=== PATIENT | female | born 1980 | race Caucasian/White ===

== ENCOUNTER 2017-12-08 06:44 | Inpatient (IN) | payer OTHER ==
[~2017-12-08] VITALS: Ht 160 cm; Wt 111.5 kg
[2017-12-12] MEDS ORDERED: CLR10 PO (08:05)
[2017-12-12] MEDS ORDERED: PRENTAB26 PO (08:05)
[2017-12-12] MEDS ORDERED: POTASSIUM 99 MG (08:05)
[2017-12-12 08:08] VITALS: Ht 160 cm; Wt 111.5 kg
[2017-12-12] MEDS ORDERED: LACTATED RINGER'S 1000ML 1,000 ML IV PRN (09:51)
[2017-12-12] MEDS ORDERED: DINOPROSTONE 10 MG INSERT PV ONE (10:00)
[2017-12-12] MEDS: LACTATED RINGER'S 1000ML 1,000 ML IV SCH ×4 (10:05→23:46)
[2017-12-12 10:23] LABS: HEMATOCRIT 39.5 % (37-47); HEMOGLOBIN 13.2 g/dL (12.0-16.0); MEAN CORPUSCULAR HEMOGLOBIN 27.4 pg (25-34); MEAN CORPUSCULAR HGB CONC 33.4 g/dl (32-36); MEAN PLATELET VOLUME 10.3 fL (7.4-10.4); PLATELET COUNT 191 K/uL (130-400); RED CELL DISTRIBUTION WIDTH CV 13.9 % (11.5-14.5); RED CELL DISTRIBUTION WIDTH SD 41.6 fL (36.4-46.3); WHITE BLOOD COUNT 11.91 K/uL (4.8-10.8)
[2017-12-12] MEDS ORDERED: BUTORPHANOL TARTRATE 1 MG/ML VIAL IV PRN (10:45)
[2017-12-12 10:50] LABS: ALBUMIN 2.6 gm/dl (3.4-5.0); CALCIUM 8.7 mg/dl (8.5-10.1); CREATININE 0.65 mg/dl (0.60-1.20); POTASSIUM 4.1 mmol/L (3.5-5.1); TOTAL PROTEIN 6.6 gm/dl (6.4-8.2)
[2017-12-12] MEDS ORDERED: BUPIVACAINE 0.25% 30 ML VIAL ONE (19:46)
[2017-12-12] MEDS ORDERED: EpHEDrine SULFATE INJ 50 MG/ML AMP ONE (19:47)
[2017-12-12] MEDS ORDERED: FENTANYL 2MCG/ML ROPIV 1.25MG/ML 100ML BAG ONE (19:47)
[2017-12-12] MEDS ORDERED: FENTANYL CITRATE INJ 50 MCG/1 ML 2 ML VIAL ONE (19:47)
[2017-12-12] MEDS ORDERED: LACTATED RINGER'S 1000ML 500 ML IV PRN (20:48)
[2017-12-12] MEDS ORDERED: NALOXONE HCL INJ 1 MG in SODIUM CHLORIDE 0.9% 1000ML 1,000 ML IV PRN (20:48)
[2017-12-12] MEDS ORDERED: NO NARCOTICS OR SEDATIVES SCH (21:00)
[2017-12-12] MEDS ORDERED: ONDANSETRON INJ 2 MG/ML 2 ML VIAL IV PRN (21:00)
[2017-12-12] MEDS ORDERED: MoRPHine SULFATE PF 1 MG/ML 10 ML AMP/VIAL EPI PRN (21:00)
[2017-12-12] MEDS ORDERED: NALOXONE HCL INJ 0.4 MG/1 ML VIAL/CARP IV PRN (21:00)
[2017-12-12] MEDS ORDERED: NALBUPHINE HCL INJ 10 MG/ML 1ML AMP IV PRN (21:00)
[2017-12-12] MEDS ORDERED: CONTINUE MEDICATION PRN (21:00)
[2017-12-12] MEDS ORDERED: DiphenhydrAMINE HCL 50 MG/ML VIAL IV PRN (21:00)
[2017-12-12] MEDS ORDERED: EpHEDrine SULFATE INJ 50 MG/ML AMP IV PRN (21:00)
[2017-12-12] MEDS: FENTANYL 2MCG/ML ROPIV 1.25MG/ML 100ML BAG EPI PRN (22:52)
[2017-12-13] MEDS ORDERED: LACTATED RINGER'S 1000ML 500 ML IV PRN (00:04)
[2017-12-13] MEDS ORDERED: OXYTOCIN 30 UNITS/500ML NSS IV PRN (00:15)
[2017-12-13] MEDS: FENTANYL 2MCG/ML ROPIV 1.25MG/ML 100ML BAG EPI PRN ×4 (05:58→18:54)
[2017-12-13] MEDS: LACTATED RINGER'S 1000ML 1,000 ML IV SCH ×3 (06:16→17:34)
[2017-12-13] MEDS ORDERED: LACTATED RINGER'S 1000ML 1,000 ML IV SCH (20:43)
[2017-12-13] MEDS ORDERED: CITRIC ACID/SODIUM CITRATE 15 ML UDC PO ONE (20:45)
[2017-12-13] MEDS ORDERED: CEFAZOLIN IV 2,000 MG in SYRINGE 0 ML IV ONE (21:00)
[2017-12-13] MEDS ORDERED: OXYTOCIN INJ 10 UNITS/ML VIAL ONE ×3 (22:00→23:12)
[2017-12-13] MEDS ORDERED: GENTAMICIN CONSULT ACTIVE PRN (22:00)
[2017-12-13] MEDS ORDERED: LIDOCAINE/EPINEPHRINE 2% 1:200,000 20 ML SDV ONE (22:00)
[2017-12-13] MEDS ORDERED: MoRPHine SULFATE PF 1 MG/ML 10 ML AMP/VIAL ONE (22:00)
[2017-12-13] MEDS ORDERED: GENTAMICIN INJ 120 MG in DEXTROSE 5% 100ML 100 ML IV ONE (22:15)
[2017-12-13] MEDS ORDERED: CLINDAMYCIN IV 900 MG in DEXTROSE 5% 100ML 100 ML IV ONE (22:15)
[2017-12-13] MEDS ORDERED: FENTANYL CITRATE INJ 50 MCG/1 ML 2 ML VIAL ONE (22:54)
[2017-12-13] MEDS ORDERED: MISOPROSTOL 200 MCG TAB ONE (23:06)
[2017-12-13] MEDS ORDERED: PHENYLEPHRINE 100MCG/ML 5ML SYR ONE (23:11)
[2017-12-13] MEDS ORDERED: METHYLERGONOVINE MALEATE 0.2 MG/ML AMP ONE (23:12)
[2017-12-13] MEDS ORDERED: ONDANSETRON INJ 2 MG/ML 2 ML VIAL ONE (23:15)
[2017-12-14] VITALS (15 sets, daily range): BP systolic 103–125; BP diastolic 66–79; PULSE 84–110; TEMP 36.6–37; O2SAT 93–98
[2017-12-14] MEDS ORDERED: LANOLIN OINT EXT PRN
[2017-12-14] MEDS ORDERED: SENNA 8.6 MG TAB PO PRN
[2017-12-14] MEDS ORDERED: BENZOCAINE 20% AER SPR 82.5 GM CAN EXT PRN
[2017-12-14] MEDS ORDERED: HYDROCORTISONE ACETATE 25 MG SUPP PR PRN
[2017-12-14] MEDS ORDERED: SUPERCREAM 0.870 % 15GM JAR EXT PRN
[2017-12-14] MEDS ORDERED: MAGNESIUM HYDROXIDE SUSP 30 ML UDC PO PRN
--- NOTE | 2017-12-14 00:02 | [facility] Post Operative Brief Note ---
Immediate Operative Summary Operative Date Dec 14, 2017. Pre-Operative Diagnosis Failure to progress Post-Operative Diagnosis Same as pre operative Procedure(s) Performed Primary caesarean section Lower transverse uterine incision Surgeon Dr. Marinelli Marketing Development Representative Surgeon(s) Dr. More Estimated Blood Loss 700ml Findings See Below dictated Fluids (cc crystalloids) 1500 Specimens 1. [facility] at 2253 12/13/17 2. Placenta-examine 3. Cord blood 4. Cord gases Drains None Anesthesia Type General/Epidural Complication(s) none Disposition Accompanied Pt To Recover: yes Disposition: L&D
--- NOTE | 2017-12-14 00:03 | Anesthesia Procedure Note ---
Anesthesia Epidural Removal Nt Date & Time Dec 14, 2017 at 00:03 Vital Signs Pain Intensity: 0.0 Notes Mental Status: alert / awake / arousable, participated in evaluation Nausea / Vomiting: adequately controlled Pain: adequately controlled Airway Patency, RR, SpO2: stable & adequate BP & HR: stable & adequate Hydration State: stable & adequate Neuraxial Anesthesia: was administered, sensory block is resolving Anesthetic Complications: no major complications apparent, pt satisfied with anesthetic care Epidural: removed without complications, with tip intact
[2017-12-14] MEDS ORDERED: MoRPHine SULFATE 2 MG/ML CARP IV PRN (00:15)
[2017-12-14] MEDS ORDERED: MoRPHine SULFATE PF 1 MG/ML 10 ML AMP/VIAL EPI PRN (00:15)
[2017-12-14] MEDS ORDERED: MEPERIDINE HCL 25 MG/ML CARP IV PRN (00:15)
[2017-12-14] MEDS ORDERED: NO NARCOTICS OR SEDATIVES SCH (00:15)
[2017-12-14] MEDS ORDERED: CONTINUE MEDICATION ONE (00:15)
[2017-12-14] MEDS ORDERED: EpHEDrine SULFATE INJ 50 MG/ML AMP IV PRN (00:15)
[2017-12-14] MEDS ORDERED: ONDANSETRON INJ 2 MG/ML 2 ML VIAL IV PRN (00:15)
[2017-12-14] MEDS: OXYTOCIN INJ 20 UNITS in LACTATED RINGER'S 1000ML 1,000 ML IV SCH ×2 (01:23→09:47)
[2017-12-14] MEDS: KETOROLAC TROMETHAMINE 30 MG/ML VIAL IV. PRN ×2 (02:58→13:27)
[2017-12-14 06:29] LABS: HEMATOCRIT 31.9 % (37-47); HEMOGLOBIN 10.9 g/dL (12.0-16.0); MEAN CELL VOLUME 81.4 fL (80-100); MEAN CORPUSCULAR HEMOGLOBIN 27.8 pg (25-34); MEAN CORPUSCULAR HGB CONC 34.2 g/dl (32-36); MEAN PLATELET VOLUME 9.5 fL (7.4-10.4); PLATELET COUNT 154 K/uL (130-400); RED CELL DISTRIBUTION WIDTH CV 13.8 % (11.5-14.5); RED CELL DISTRIBUTION WIDTH SD 40.8 fL (36.4-46.3); WHITE BLOOD COUNT 25.92 K/uL (4.8-10.8)
[2017-12-14 07:10] LABS: BASO ABS # 0.01 K/uL (0-0.2); IG# 0.11 K/uL (0.00-0.02); LYMPH % 5.2 %; LYMPH ABS # 1.34 K/uL (1.2-3.4); MONO % 4.6 %; MONO ABS # 1.19 K/uL (0.11-0.59); NEUT % 89.8 %; NEUT ABS # 23.27 K/uL (1.4-6.5)
--- NOTE | 2017-12-14 08:03 | OPERATIVE REPORT ---
DATE OF OPERATION: 12/14/2017 INDICATION FOR SURGERY: This is a 37-year-old patient who underwent induction of labor for postdates. She received Cervidil, Pitocin, and rupture of membranes. The patient remained at 5 cm, 50% and -2. IUPC was placed. Adequate [place] units were obtained. She did change her cervix. Decision was therefore made to perform section. PREOPERATIVE DIAGNOSES: 1. Failure to progress. 2. Postdates. 3. Suspected macrosomia. POSTOPERATIVE DIAGNOSES: 1. Failure to progress. 2. Postdates. 3. Suspected macrosomia. PROCEDURES: Primary section, low transverse. SURGEON: Dr. Marinelli. TELEMETRY TECHNICIAN: Dr. More. FINDINGS: Live male in occiput anterior presentation. There was nuchal cord, which was easily reduced. The uterus, adnexa appeared grossly normal. Rest of abdominal exam was unremarkable. INTRAVENOUS FLUIDS: 1500 mL. ESTIMATED BLOOD LOSS: 700 mL. URINE OUTPUT: 100 mL clear urine at the end of the procedure. SPECIMEN: Cord blood and placenta/cord gases. DRAINS: None. ANESTHESIA: General. DISPOSITION: Stable to recovery room. PROCEDURE IN DETAIL: The patient was taken to the operating room where she was prepped and draped in normal sterile fashion. She has received epidural earlier. Epidural was topped off. However, the epidural could not provide adequate anesthesia. Analgesia was given. Decision was therefore made to perform procedure under general. General anesthesia was performed. A Pfannenstiel incision was made with a scalpel down to the fascia. Fascia was incised in the midline and extended laterally on both sides. Fascia was sharply dissected off the rectus abdominis muscle. Peritoneum was identified and entered sharply. Once inside the abdomen, an Cecilio retractor was placed for retraction. The vesicouterine peritoneum was sharply dissected off the lower segment of the uterus. A transverse incision was made in lower section of the uterus. Infant was delivered. Nuchal cord was easily reduced. Cord was clamped and cut and handed over to the waiting pediatric team. Details of infant's weight and in the pediatric record. Placenta was manually removed. Uterus was exteriorized and cleared of all clots and debris. Uterus appeared grossly normal. Both adnexa appeared grossly normal as well. The uterus was closed in 2 layers using Vicryl stitch. There was good hemostasis. The vesicouterine peritoneum was reapproximated using plain suture. Copious amount of irrigation was used to irrigate the abdomen. The uterus was returned into the abdominal cavity. There was good hemostasis once again at the incision site. The peritoneum was closed in a running fashion using plain suture. Fascia was closed in a running fashion using Vicryl stitch. More irrigation was used to irrigate the subQ space, which was closed in a running fashion using plain suture. Skin was closed with 4-0 Monocryl. All instruments were removed from the abdomen and accounted for x2. The patient is doing well in its recovery. I attest to the content of the Intraoperative Record and any orders documented therein. Any exception s are noted below.
--- NOTE | 2017-12-14 08:05 | Surgery Progress Note ---
Surgery Progress Note Date of Service Dec 14, 2017. Subjective Post OP Day: 1 + feeling well Objective Vital Signs: Date Time Temp Pulse Resp B/P (MAP) Pulse Ox O2 Delivery O2 Flow Rate FiO2 12/14/17 05:39 18 93 12/14/17 04:38 18 95 12/14/17 03:30 17 93 12/14/17 02:30 93 Room Air 12/14/17 02:30 36.8 84 19 125/79 (94) 93 Room Air 12/14/17 02:30 19 93 Abdomen: non tender, non distended, soft Incision(s): clean, dry, intact Extremities: normal inspection, no pedal edema, no calf tenderness, + pedal edema Laboratory Results: Results Past 24 Hours Test 12/14/17 06:16 Range/Units White Blood Count 25.92 4.8-10.8 K/uL Red Blood Count 3.92 4.2-5.4 M/uL Hemoglobin 10.9 12.0-16.0 g/dL Hematocrit 31.9 37-47 % Mean Corpuscular Volume 81.4 80-100 fL Mean Corpuscular Hemoglobin 27.8 25-34 pg Mean Corpuscular Hemoglobin Concent 34.2 32-36 g/dl Platelet Count 154 130-400 K/uL Mean Platelet Volume 9.5 7.4-10.4 fL Neutrophils (%) (Auto) 89.8 % Lymphocytes (%) (Auto) 5.2 % Monocytes (%) (Auto) 4.6 % Eosinophils (%) (Auto) 0.0 % Basophils (%) (Auto) 0.0 % Neutrophils # (Auto) 23.27 1.4-6.5 K/uL Lymphocytes # (Auto) 1.34 1.2-3.4 K/uL Monocytes # (Auto) 1.19 0.11-0.59 K/uL Eosinophils # (Auto) 0.00 0-0.5 K/uL Basophils # (Auto) 0.01 0-0.2 K/uL RDW Standard Deviation 40.8 36.4-46.3 fL RDW Coefficient of Variation 13.8 11.5-14.5 % Immature Granulocyte % (Auto) 0.4 % Immature Granulocyte # (Auto) 0.11 0.00-0.02 K/uL Assessment & Plan POD#1 advance diet regular diet
[2017-12-14] MEDS: SIMETHICONE 80 MG CHEW PO SCH ×4 (09:54→19:38)
[2017-12-14] MEDS: PRENATAL VITAMIN TAB PO SCH (09:54)
[2017-12-14] MEDS: DOCUSATE SODIUM 100 MG CAP PO SCH ×2 (09:54→19:38)
[2017-12-14] MEDS: FERROUS SULFATE 325 MG TAB PO SCH (09:56)
[2017-12-14] MEDS ORDERED: DC INTRASPINAL MORPHINE SCH (17:05)
[2017-12-14] MEDS ORDERED: OXYCODONE/ACETAMINOPHEN 5-325 TAB PO PRN (17:06)
[2017-12-14] MEDS ORDERED: DiphenhydrAMINE HCL 50 MG/ML VIAL IV PRN (17:06)
[2017-12-14] MEDS ORDERED: ZOLPIDEM TARTRATE 5 MG TAB PO PRN (17:06)
[2017-12-14] MEDS: IBUPROFEN 600 MG TAB PO PRN (19:22)
[2017-12-14] MEDS: OXYCODONE/ACETAMINOPHEN 5-325 TAB PO PRN (19:22)
[2017-12-14] MEDS ORDERED: BISACODYL 5 MG TABEC PO ONE (22:00)
[2017-12-15 04:05] VITALS: BP 94/58; PULSE 120; TEMP 37.5; O2SAT 94
[2017-12-15 07:26] LABS: HEMATOCRIT 27.5 % (37-47); HEMOGLOBIN 9.4 g/dL (12.0-16.0)
[2017-12-15] MEDS: SIMETHICONE 80 MG CHEW PO SCH ×3 (08:30→20:02)
[2017-12-15] MEDS: FERROUS SULFATE 325 MG TAB PO SCH (08:31)
[2017-12-15] MEDS: DOCUSATE SODIUM 100 MG CAP PO SCH ×2 (08:31→20:02)
[2017-12-15] MEDS: PRENATAL VITAMIN TAB PO SCH (08:31)
[2017-12-15] MEDS: IBUPROFEN 600 MG TAB PO PRN ×2 (08:34→15:33)
[2017-12-15] MEDS: OXYCODONE/ACETAMINOPHEN 5-325 TAB PO PRN ×2 (08:34→15:35)
--- NOTE | 2017-12-15 08:36 | Surgery Progress Note ---
Surgery Progress Note Date of Service Dec 15, 2017. Subjective Post OP Day: 2 + feeling well, + ambulating, + flatus, + pain controlled, + diet (Tolerating PO food and Meds), No complaints, No chest pain, No SOB, No bowel movement, No using CREDIT INVESTIGATOR, No nausea, No vomiting Objective Vital Signs: Date Time Temp Pulse Resp B/P (MAP) Pulse Ox O2 Delivery O2 Flow Rate FiO2 12/15/17 04:05 37.5 120 18 94/58 (70) 94 Room Air 12/14/17 23:20 36.9 110 18 103/66 (78) 96 Room Air 12/14/17 23:20 96 Room Air 12/14/17 19:25 37.0 110 20 123/74 (90) 96 Room Air 12/14/17 16:00 97 Room Air 12/14/17 16:00 36.7 98 16 118/73 (88) 97 Room Air 12/14/17 16:00 16 97 12/14/17 14:28 18 96 12/14/17 13:30 18 98 12/14/17 11:30 36.8 91 18 105/72 (83) 96 Room Air 12/14/17 11:30 18 96 12/14/17 10:30 18 96 12/14/17 09:30 18 95 General Appearance: WD/WN, no apparent distress Head: normocephalic, atraumatic Neck: supple, no adenopathy, thyroid normal, no JVD, no carotid bruits, trachea midline Respiratory/Chest: chest non-tender, lungs clear, normal breath sounds, no respiratory distress, no accessory muscle use Cardiovascular: regular rate, rhythm, no edema, no gallop, no JVD, no murmur Abdomen: normal bowel sounds, non tender, non distended, soft, no organomegaly , no pulsatile mass Extremities: normal range of motion, non-tender, normal inspection, no pedal edema, no calf tenderness, normal capillary refill, pelvis stable Laboratory Results: Results Past 24 Hours Test 12/15/17 07:11 12/15/17 08:32 Range/Units Hemoglobin 9.4 12.0-16.0 g/dL Hematocrit 27.5 37-47 % Assessment & Plan c/sec day #2 pt doing well no complaints anticipate disch tomorrow
[2017-12-15 08:40] VITALS: BP 133/82; PULSE 111; TEMP 36.6; O2SAT 97
[2017-12-15 13:45] VITALS: BP 105/69; PULSE 98; TEMP 36.7; O2SAT 98
[2017-12-15 15:20] VITALS: BP 109/74; PULSE 104; TEMP 36.8; O2SAT 100
[2017-12-16] VITALS (7 sets, daily range): BP systolic 108–122; BP diastolic 57–78; PULSE 95–112; TEMP 36.6–38.6; O2SAT 98–99
[2017-12-16] MEDS: IBUPROFEN 600 MG TAB PO PRN ×3 (00:40→20:49)
[2017-12-16] MEDS: OXYCODONE/ACETAMINOPHEN 5-325 TAB PO PRN ×3 (00:41→20:50)
[2017-12-16] MEDS ORDERED: GENTAMICIN CONSULT ACTIVE PRN (01:45)
[2017-12-16] MEDS ORDERED: GENTAMICIN IV ONE ×2 (02:00→14:00)
[2017-12-16] MEDS ORDERED: DEXTROSE 5% IV ONE ×2 (02:00→14:00)
--- NOTE | 2017-12-16 02:01 | Pharmacy Progress Note ---
Pharmacy Abx Initial Consult Date of Service Dec 16, 2017. Pharmacy Dosing Scope Date of Consult: 12/16/17 Consultation requested by: Dr. Marinelli Pharmacy is consulted to initiate gentamicin IV dosing therapy, order appropriate labs and adjust drug dose/frequency. Subjective The patient is a 37 year old female admitted on Dec 12, 2017 at 07:40. Objective Height (Feet): 5 Height (Inches): 3.00 Weight (Kilograms): 111.500 Vital Signs (Past 12Hrs) Vital Signs Past 12 Hours Date Time Temp Pulse Resp B/P (MAP) Pulse Ox O2 Delivery O2 Flow Rate FiO2 12/16/17 00:30 37.9 112 20 122/78 (93) 99 Room Air 12/16/17 00:30 99 Room Air 12/15/17 15:20 36.8 104 18 109/74 (86) 100 Room Air 12/15/17 15:20 100 Room Air Micro Results Date/Time Source Procedure Growth Status 12/16/17 01:31 Blood Blood Culture Pending Ordered 12/16/17 01:31 Blood Blood Culture Pending Ordered Assessment & Plan Assessment 37 year old female who is post- day 2 () who has a low grade fever. Empiric antibiotics for endometritis Plan gentamicin/clinda for treatment of empiric coverage altered pharmacokinetics in the setting of less than six weeks post- * Dose: 560 mg (5 mg/kg - actual body weight for enterprise resource planning consultant indication) IV x 1 * adjustment made per [place] nomogram - random pulled 10 hours after dose Pharmacy will continue to follow and will adjust dose/frequency as necessary. Thank you.
[2017-12-16] MEDS: CLINDAMYCIN IV 900 MG in DEXTROSE 5% 100ML 100 ML IV SCH ×3 (02:18→18:02)
[2017-12-16] MEDS ORDERED: BISACODYL 10 MG SUPP PR PRN (07:00)
--- NOTE | 2017-12-16 07:35 | DIAGNOSTIC IMAGING REPORT ---
TWO VIEW CHEST CLINICAL HISTORY: Fever. FINDINGS: PA and lateral chest radiographs are obtained. No prior studies are available for comparison at the time of dictation. The cardiomediastinal silhouette is unremarkable. There is mild bibasilar atelectasis. The lungs and pleural spaces are otherwise clear. There is no pneumothorax. The bony thorax appears intact. IMPRESSION: No active disease in the chest. Electronically signed by: Jose C Romero M.D. 12/16/2017 7:34 AM Dictated Date/Time: 12/16/2017 7:34 AM
[2017-12-16] MEDS: SIMETHICONE 80 MG CHEW PO SCH ×4 (08:02→20:38)
[2017-12-16] MEDS: DOCUSATE SODIUM 100 MG CAP PO SCH ×2 (08:02→20:38)
[2017-12-16] MEDS: PRENATAL VITAMIN TAB PO SCH (08:02)
[2017-12-16] MEDS: FERROUS SULFATE 325 MG TAB PO SCH (08:02)
--- NOTE | 2017-12-16 10:07 | Surgery Progress Note ---
Surgery Progress Note Date of Service Dec 16, 2017. Subjective Post OP Day: 3 + feeling well, + ambulating, + flatus, + pain controlled, + diet Objective Vital Signs: Date Time Temp Pulse Resp B/P (MAP) Pulse Ox O2 Delivery O2 Flow Rate FiO2 12/16/17 03:10 38.3 12/16/17 01:25 38.6 12/16/17 00:30 37.9 112 20 122/78 (93) 99 Room Air 12/16/17 00:30 99 Room Air 12/15/17 15:20 36.8 104 18 109/74 (86) 100 Room Air 12/15/17 15:20 100 Room Air 12/15/17 13:45 36.7 98 20 105/69 (81) 98 Room Air General Appearance: no apparent distress Abdomen: non tender, non distended, soft Incision(s): clean, dry, intact Extremities: non-tender, normal inspection, no pedal edema Laboratory Results: Results Past 24 Hours Test 12/16/17 01:47 12/16/17 10:05 Range/Units Urine Color DK YELLOW Urine Appearance CLOUDY CLEAR Urine pH 5.0 4.5-7.5 Urine Specific David 1.019 1.000-1.030 Urine Protein 2+ NEG Urine Glucose (UA) NEG NEG Urine Ketones NEG NEG Urine Occult Blood 3+ NEG Urine Nitrite NEG NEG Urine Bilirubin NEG NEG Urine Urobilinogen NEG NEG Urine Leukocyte Esterase LARGE NEG Urine WBC (Auto) >30 0-5 /hpf Urine RBC (Auto) >30 0-4 /hpf Urine Hyaline Casts (Auto) 1-5 0-5 /lpf Urine Epithelial Cells (Auto) 20-30 0-5 /lpf Urine Bacteria (Auto) NEG NEG Microbiology Results 12/16/17 Blood Culture, Received Pending 12/16/17 Blood Culture, Received Pending Assessment & Plan POD#3 advance diet repeat CBC continue IV antibiotics
[2017-12-16 10:27] LABS: HEMATOCRIT 24.7 % (37-47); HEMOGLOBIN 8.3 g/dL (12.0-16.0); MEAN CELL VOLUME 82.3 fL (80-100); MEAN CORPUSCULAR HEMOGLOBIN 27.7 pg (25-34); MEAN CORPUSCULAR HGB CONC 33.6 g/dl (32-36); MEAN PLATELET VOLUME 9.8 fL (7.4-10.4); PLATELET COUNT 141 K/uL (130-400); RED CELL DISTRIBUTION WIDTH CV 14.5 % (11.5-14.5); RED CELL DISTRIBUTION WIDTH SD 44.3 fL (36.4-46.3); WHITE BLOOD COUNT 11.34 K/uL (4.8-10.8)
[2017-12-16 11:07] LABS: BASO % 0.1 %; BASO ABS # 0.01 K/uL (0-0.2); EOS % 0.4 %; EOS ABS # 0.05 K/uL (0-0.5); IG# 0.06 K/uL (0.00-0.02); LYMPH % 7.9 %; MONO % 5.4 %; MONO ABS # 0.61 K/uL (0.11-0.59); NEUT % 85.7 %; NEUT ABS # 9.71 K/uL (1.4-6.5)
[2017-12-16 12:30] LABS: CREATININE 0.67 mg/dl (0.60-1.20)
--- NOTE | 2017-12-16 15:18 | Pharmacy Progress Note ---
Pharmacy Abx Dose Short Note Date of Service Dec 16, 2017. Assessment & Plan Assessment 37 year old female receiving gentamicin and clindamycin for empiric treatment of possible endometritis Day # 2 of antimicrobial therapy. Plan Gentamicin * Random level of 2.5 mcg/mL (taken 10 hrs after dose) was applied to [place] nomogram to obtain a dosing interval of q24h * Continue dose of 560 mg (ABW) IV every 24 hours * Will continue to monitor renal function, repeat random level not indicated until change in clinical status. Pharmacy will continue to follow and will adjust dose/frequency as necessary. Thank you.
[2017-12-17] MEDS ORDERED: GENTAMICIN IV SCH ×2
[2017-12-17] MEDS ORDERED: DEXTROSE 5% IV SCH ×2
[2017-12-17] MEDS: CLINDAMYCIN IV 900 MG in DEXTROSE 5% 100ML 100 ML IV SCH ×2 (02:23→10:16)
[2017-12-17 04:00] VITALS: TEMP 36.7
[2017-12-17] MEDS: OXYCODONE/ACETAMINOPHEN 5-325 TAB PO PRN ×2 (06:31→16:00)
[2017-12-17] MEDS: IBUPROFEN 600 MG TAB PO PRN ×2 (06:32→16:01)
[2017-12-17] MEDS: DOCUSATE SODIUM 100 MG CAP PO SCH (08:21)
[2017-12-17] MEDS: FERROUS SULFATE 325 MG TAB PO SCH (08:21)
[2017-12-17] MEDS: SIMETHICONE 80 MG CHEW PO SCH ×2 (08:21→12:11)
[2017-12-17] MEDS: PRENATAL VITAMIN TAB PO SCH (08:21)
[2017-12-17 08:25] VITALS: BP 128/81; PULSE 92; TEMP 36.3; O2SAT 98
[2017-12-17] MEDS ORDERED: MTR600X PO (09:10)
[2017-12-17] MEDS ORDERED: OXYC-57 PO (09:10)
--- NOTE | 2017-12-17 09:13 | Discharge Instructions ---
Discharge Instructions Date of Service Dec 17, 2017. Admission Reason for Admission: Induction Discharge Discharge Diagnosis / Problem: discharged Discharge Goals Goal(s): Routine recovery after delivery Activity Recommendations Activity Limitations: as noted below Lifting Limitations: no more than 10 pounds Exercise/Sports Limitations: gradually increase as tolerated Shower/Bathe: no limitations Driving or Machine Use: resume 3 days after discharge . Instructions / Follow-Up Instructions / Follow-Up ACTIVITY RECOMMENDATIONS: * Gradual return to full activity over the next 2-3 weeks. * No lifting - nothing heavier than baby over the next 2-3 weeks. * Do not engage in vigorous exercise, sexual activity or sports until cleared by your physician. * Do not drive or operate any motorized equipment until cleared by your physician. * You may shower/bathe daily. BREAST CARE: If you are not breast feeding: * Wear a supportive bra 24 hours a day for one to two weeks. * Avoid stimulating your breasts and nipples as much as possible during the first few weeks after delivery. * When taking a shower, have the warm water hit your back, not breasts. * When your breasts feel full, apply ice packs. Usually three to four times a day helps ease the discomfort. * Take a mild pain medication (Tylenol/Motrin) when you are uncomfortable. If breast feeding: * Use breast milk to lubricate nipples. Lansinoh cream may be used for sore nipples. You do not need to remove cream prior to breast feeding. If using a different brand of cream, check the label for directions regarding removal of cream prior to nursing. * Wear a supportive bra. * If having problems with breasts or breast feeding, call a systems management consultant or your health care provider. OVER THE COUNTER MEDICATION: * For discomfort or pain, you may use Acetaminophen (Tylenol), Ibuprofen (Advil ), or Naproxen (Aleve) following the package directions. * For constipation you may use Colace following the package directions. SPECIAL CARE INSTRUCTIONS: When you are discharged from the hospital, it is important for you to follow the instructions listed below: * During the first week at home, you should be able to care for yourself and your baby. In addition, the usual light household activities are encouraged. * Limit your activities to the way you feel. Do not try to clean the house or move furniture. Be sensible. * If you actively engage in sports and have done so up until the time of your delivery, you may resume these activities as soon as you feel able. This may take up to one month or even longer. Use good judgment. * Continue to take your vitamins for at least six weeks after the of your baby. * Your diet need not be limited unless you were on a special diet before your delivery. Breast-feeding mothers need around 2500 calories per day and at least 64-80 ounces of fluid per day (8 to 10 glasses). * You should eat foods from the four major food groups. Crash diets or fad diets are to be avoided. Eating lean meats, fresh fruits and vegetables, low-fat dairy products, high fiber foods and a regular exercise program, will help you get back to your pre- weight without putting your health at risk. * Constipation is sometimes a problem after delivery. Take a mild laxative as needed. If breast feeding, Milk of Magnesia is acceptable to use. You may use a suppository or Fleets enema if no episiotomy. * A daily shower or tub bath is suggested. Be sure to thoroughly and gently dry the perineum. * A bloody vaginal discharge will usually continue until around four weeks post . A small amount of bleeding may continue for as long as six weeks. Vaginal discharge changes from the bright red bleeding after delivery to pink then brownish and finally yellowish-pink before becoming white and disappearing. * Bleeding may increase with activity. Your first period may come in 4-8 weeks. If you are breast feeding, your period may be delayed even longer. * [place] (sex) can begin whenever both you and your partner feel comfortable and do not have any form of genital infection. It is recommended that you wait at least six weeks for internal and external healing to occur. If you have questions, please talk to your health care practitioner. A condom should be used to prevent infection and . * Foreplay, gentle intercourse and lubrication is very important the first several times to prevent pain. A water-based lubricant such as K-Y jelly or Astroglide may be used. * Tampons and/or Douching should be avoided until after six weeks check-up. * If you have RH negative blood and your baby is RH positive, you will receive RHOGAM by injection prior to discharge. The nurse will give you a card to keep with you that has the date and place that you received RHOGAM after delivery. * During your care, you had a Rubella screen done to check for the presence of rubella antibodies in your blood. If your test was negative, you will receive a Rubella vaccine prior to discharge. This vaccine may cause a fever, soreness at the injection site and flu-like symptoms. If these symptoms persist, notify your health care practitioner. is not advised for three months after a Rubella vaccine. * Verbalizes understanding of car seat law as reviewed with patient nursing. * Car Seat hand-out given and reviewed with patient by nursing. * Shaken baby information reviewed with patient by nursing. Call you doctor if: * Heavy bleeding (saturating several pads an hour) or passing clots the size of your fist. * A fever >101 degrees F (38.3 degrees C) on two occasions four hours apart and /or chills. * Unusual pain in the pelvic or vaginal areas. Pain should improve each day . * Call the doctor for any increased redness, drainage or swelling around the incision and any pain unrelieved by prescribed pain medication. * Any signs or symptoms of phlebitis (possible blood clots forming in the veins ): leg pain, warm, red or swollen area on leg. * "Baby Blues" lasting longer than two weeks. If you have any questions or concerns, call your health care practitioner at . FOLLOW-UP VISIT: * Incision check (staple removal) in 1 week. Please call doctor's office at to set up appointment. * Please call the office at to schedule a 6 week examination. It is important you keep this appointment. * It is important for you to make arrangements for either yearly or twice yearly check-ups thereafter. Current Hospital Diet Patient's current hospital diet: Regular OB Diet Discharge Diet Recommended Diet: Regular OB Diet Procedures Procedures Performed: Primary caesarean section Lower transverse uterine incision Pending Studies Studies pending at discharge: no Medical Emergencies . Who to Call and When: Medical Emergencies: If at any time you feel your situation is an emergency, please call 911 immediately. . Non-Emergent Contact Non-Emergency issues call your: Primary Care Provider . . "Provider Documentation" section prepared by Brijesh Lam. .
--- NOTE | 2017-12-17 09:15 | Surgery Progress Note ---
Surgery Progress Note Date of Service Dec 17, 2017. Subjective Post OP Day: 3 + feeling well, + ambulating, + bowel movement, + flatus, + pain controlled, + diet Objective Vital Signs: Date Time Temp Pulse Resp B/P (MAP) Pulse Ox O2 Delivery O2 Flow Rate FiO2 12/17/17 04:00 36.7 12/16/17 20:00 99 Room Air 12/16/17 20:00 36.6 105 18 115/75 (88) Room Air 12/16/17 15:10 36.8 95 20 108/57 (74) 99 Room Air 12/16/17 11:55 37.0 General Appearance: no apparent distress Abdomen: non tender, non distended, soft Incision(s): clean Extremities: non-tender, normal inspection Laboratory Results: Results Past 24 Hours Test 12/16/17 10:05 12/16/17 11:55 12/17/17 04:44 Range/Units White Blood Count 11.34 4.8-10.8 K/uL Red Blood Count 3.00 4.2-5.4 M/uL Hemoglobin 8.3 12.0-16.0 g/dL Hematocrit 24.7 37-47 % Mean Corpuscular Volume 82.3 80-100 fL Mean Corpuscular Hemoglobin 27.7 25-34 pg Mean Corpuscular Hemoglobin Concent 33.6 32-36 g/dl Platelet Count 141 130-400 K/uL Mean Platelet Volume 9.8 7.4-10.4 fL Neutrophils (%) (Auto) 85.7 % Lymphocytes (%) (Auto) 7.9 % Monocytes (%) (Auto) 5.4 % Eosinophils (%) (Auto) 0.4 % Basophils (%) (Auto) 0.1 % Neutrophils # (Auto) 9.71 1.4-6.5 K/uL Lymphocytes # (Auto) 0.90 1.2-3.4 K/uL Monocytes # (Auto) 0.61 0.11-0.59 K/uL Eosinophils # (Auto) 0.05 0-0.5 K/uL Basophils # (Auto) 0.01 0-0.2 K/uL RDW Standard Deviation 44.3 36.4-46.3 fL RDW Coefficient of Variation 14.5 11.5-14.5 % Immature Granulocyte % (Auto) 0.5 % Immature Granulocyte # (Auto) 0.06 0.00-0.02 K/uL Toxic Granulation 1+ Dohle Bodies 1+ Microcytosis PRESENT Creatinine 0.67 0.60-1.20 mg/dl Est Creatinine Clear Calc Drug Dose 140.7 ml/min Estimated GFR () 132.0 Estimated GFR (Non- 113.9 Random Gentamicin Level 2.50 mcg/ml Assessment & Plan POD#3 regular diet discharged
[2017-12-17 10:23] LABS: CREATININE 0.7 mg/dl (0.60-1.20)
[2017-12-17 15:30] VITALS: BP 130/81; PULSE 103; TEMP 37.2; O2SAT 99
[2017-12-17 16:10] VITALS: BP_DIAS 81; PULSE 103; TEMP 37.2
== END 2017-12-17 16:20 | disposition home or self-care (01) | DRG 765 ==
LOC: C.LD 12-12 07:40 → C.OBG 12-14 02:22
PROVIDERS: ADMIT Obstetrics & Gynecology; ATTEND Obstetrics & Gynecology
PROC: 3E0P7GC Introduction of Other Therapeutic Substance into Female Reproductive, Via Natural or Artificial Opening (ICD-10-PCS; 2017-12-12)
PROC: 10D00Z1 Extraction of Products of Conception, Low, Open Approach (ICD-10-PCS; principal; 2017-12-14)
DX: O48.0 Post-term pregnancy (principal); O86.12 Endometritis following delivery; Z68.41 Body mass index [BMI] 40.0-44.9, adult; Z3A.40 40 weeks gestation of pregnancy; O61.8 Other failed induction of labor; O62.0 Primary inadequate contractions; O66.2 Obstructed labor due to unusually large fetus; O69.81X0 Labor and delivery complicated by cord around neck, without compression, not applicable or unspecified; O99.214 Obesity complicating childbirth; E66.9 Obesity, unspecified; O09.513 Supervision of elderly primigravida, third trimester; Z37.0 Single live birth; Z88.0 Allergy status to penicillin; Z88.1 Allergy status to other antibiotic agents

== ENCOUNTER 2020-08-17 19:01 | Inpatient (IN) ==
[2020-08-17] MEDS ORDERED: LACTATED RINGER'S 1,000 ML IV SCH (19:45)
[2020-08-17] MEDS ORDERED: CLINDAMYCIN 900 MG in DEXTROSE 5% 50 ML IV ONE (19:51)
[2020-08-17] MEDS ORDERED: CITRIC ACID/SODIUM CITRATE 15 ML UDC PO SCH (20:00)
[2020-08-17 20:19] LABS: Basophils # (auto) 0.01 K/uL (0-0.2); Basophils % (auto) 0.1 %; Eosinophils # (auto) 0.08 K/uL (0-0.5); Eosinophils % (auto) 0.7 %; Hematocrit (blood only) 39.7 % (37-47); Immature Granulocytes # (auto) 0.05 K/uL (0.00-0.02); Immature Granulocytes % (auto) 0.4 %; Lymphocytes # (auto) 2.63 K/uL (1.2-3.4); Lymphocytes % (auto) 21.8 %; Mean Corpuscular Hemoglobin 28.9 pg (25-34); Mean Corpuscular Hgb Conc 35.3 g/dL (32-36); Mean Corpuscular Volume 81.9 fL (80-100); Monocytes # (auto) 0.93 K/uL (0.11-0.59); Monocytes % (auto) 7.7 %; Neutrophils # (auto) 8.34 K/uL (1.4-6.5); Neutrophils % (auto) 69.3 %; Platelet Count 196 K/uL (130-400); RDW Coefficient of Variation 14.3 % (11.5-14.5); RDW Standard Deviation 42.4 fL (36.4-46.3); Red Blood Count 4.85 M/uL (4.2-5.4); White Blood Count 12.04 K/uL (4.8-10.8)
--- NOTE | 2020-08-17 20:45 | History & Physical Bridge Note ---
Date of Service August 17, 2020 History & Physical Bridge Note I have examined the patient, reviewed the History & Physical and in the interval since the performance of the History & Physical I have noted the following changes of clinical significance: no changes noted
--- NOTE | 2020-08-17 20:49 | Obstetrical Progress Note ---
Date of Service August 17, 2020 Assessment & Plan Admission and Anticipated Discharge Date Admission Date: August 17, 2020 Subjective Admit Note 40 F P1001 admitted with onset of labor and SROM clear fluid at 39 weeks with previous and planned repeat this upcoming Tuesday. Consents for repeat obtained and patient will be prepped for . Results & Data ([facility]) Vital Signs (Past 12 Hours) Vital Signs Pulse Resp BP 08/17/20 19:09 18 08/17/20 19:06 105 H 130/89
--- NOTE | 2020-08-17 22:25 | Anesthesiology Consultation ---
Date of Service August 17, 2020 Assessment & Plan Chart Review Chart Review: Acceptable Risk for Surgery Consults Requested none History Surgery Operation Date: 08/17/20 22:00 Proposed Procedures p Section in LD - Brijesh Lam MD Height/Weight Height: 5 ft 3 in Weight: 110.677 kg Allergies Allergy/AdvReac Type Severity Reaction Status Date / Time cat dander Allergy Mild ITCHY Verified 07/17/20 11:03 cephalexin Allergy Mild HIVES Verified 07/17/20 11:03 Penicillins Allergy Unknown UNKNOWN Verified 07/17/20 11:03 Medications Home Medications Medication Instructions Recorded Confirmed Last Taken PNV cmb#95-ferrous fumarate-FA 1 tab PO HS 02/17/18 08/17/20 08/16/20 22:00 [] loratadine 10 mg PO HS 02/17/18 08/17/20 08/16/20 22:00 aspirin [Aspir-81] 81 mg PO HS 07/17/20 08/17/20 08/16/20 22:00 sertraline 50 mg PO HS 07/17/20 08/17/20 08/16/20 22:00 potassium 1 mg PO DAILY 08/17/20 08/17/20 08/16/20 22:00 Past Medical History Medical History Depression Past Family History Family History Aunt Family history of diabetes mellitus Uncle Family history of diabetes mellitus Other Heart disease Lung disease Past Surgical History Surgical History History of tooth extraction WISDOM TEETH Previous section 11/2017-PER PT-EPIDURAL WORE OFF DURING [facility]ORING-RECEIVED GENERAL ANESTHESIA FOR DELIVERY -- SEE RECORDS SCANNED TO EMR. S/P LEEP (loop electrosurgical excision procedure) Social History Smoking Status: Never smoker Hx Alcohol Use: Yes Alcohol type: wine Hx Substance Use: No Physical Exam Vital Signs Last Vital Signs Temp 36.8 C 08/17/20 21:43 Pulse 105 H 08/17/20 19:06 Resp 18 08/17/20 19:09 BP 130/89 08/17/20 19:06 Testing Laboratory Results 08/17/20 20:09 Blood Type O Positive 08/17/20 20:09 Antibody Screen POSITIVE A 08/17/20 20:09
[2020-08-18] MEDS ORDERED: AZITHROMYCIN 500 MG in DEXTROSE 5% 250 ML IV STA (01:54)
[2020-08-18] MEDS ORDERED: MoRPHine SULFATE PF 1 MG/ML 10 ML AMP/VIAL ONE (01:58)
--- NOTE | 2020-08-18 02:56 | Anesthesiology Consultation ---
Date of Service August 18, 2020 Assessment & Plan Chart Review Chart Review: Acceptable Risk for Surgery Consults Requested none History Surgery Operation Date: 08/17/20 22:00 Proposed Procedures p Section in LD - Brijesh Lam MD Height/Weight Height: 5 ft 3 in Weight: 110.677 kg Allergies Allergy/AdvReac Type Severity Reaction Status Date / Time cat dander Allergy Mild ITCHY Verified 07/17/20 11:03 cephalexin Allergy Mild HIVES Verified 07/17/20 11:03 Penicillins Allergy Unknown UNKNOWN Verified 07/17/20 11:03 Medications Home Medications Medication Instructions Recorded Confirmed Last Taken PNV cmb#95-ferrous fumarate-FA 1 tab PO HS 02/17/18 08/17/20 08/16/20 22:00 [] loratadine 10 mg PO HS 02/17/18 08/17/20 08/16/20 22:00 aspirin [Aspir-81] 81 mg PO HS 07/17/20 08/17/20 08/16/20 22:00 sertraline 50 mg PO HS 07/17/20 08/17/20 08/16/20 22:00 potassium 1 mg PO DAILY 08/17/20 08/17/20 08/16/20 22:00 Active Medications Generic Name Dose Route Start Last Admin Trade Name Freq PRN Reason Stop Dose Admin Azithromycin 500 mg/ Dextrose 255 mls @ 127.5 mls/hr 08/18/20 01:54 08/18/20 02:06 IV 08/18/20 03:53 127.5 mls/hr PREOP STA Administration Past Medical History Medical History Depression Past Family History Family History Aunt Family history of diabetes mellitus Uncle Family history of diabetes mellitus Other Heart disease Lung disease Past Surgical History Surgical History History of tooth extraction WISDOM TEETH Previous section 11/2017-PER PT-EPIDURAL WORE OFF DURING [facility]ING-RECEIVED GENERAL ANESTHESIA FOR DELIVERY -- SEE RECORDS SCANNED TO EMR. S/P LEEP (loop electrosurgical excision procedure) Social History Smoking Status: Never smoker Hx Alcohol Use: Yes Alcohol type: wine Hx Substance Use: No Physical Exam Vital Signs Last Vital Signs Temp 36.9 C 08/18/20 00:29 Pulse 105 H 08/17/20 19:06 Resp 18 08/18/20 00:29 BP 130/89 08/17/20 19:06 Testing Laboratory Results 08/17/20 20:09 Blood Type O Positive 08/17/20 20:09 Antibody Screen POSITIVE A 08/17/20 20:09
[2020-08-18] MEDS ORDERED: NALOXONE HCL 0.4 MG/1 ML VIAL/CARP IV PRN (03:07)
[2020-08-18] MEDS ORDERED: MEPERIDINE HCL 25 MG/ML CARP/VIAL IV PRN (03:07)
[2020-08-18] MEDS ORDERED: PROMETHAZINE HCL 12.5 MG in SODIUM CHLORIDE 0.9% 50 ML IV PRN (03:07)
[2020-08-18] MEDS ORDERED: LACTATED RINGER'S 500 ML IV PRN (03:07)
[2020-08-18] MEDS ORDERED: METOCLOPRAMIDE HCL 10 MG in SODIUM CHLORIDE 0.9% 50 ML IV PRN (03:07)
[2020-08-18] MEDS ORDERED: diphenhydrAMINE 50 MG/ML VIAL IV PRN ×2 (03:07→21:07)
[2020-08-18] MEDS ORDERED: ONDANSETRON INJ 2 MG/ML 2 ML VIAL IV PRN ×2 (03:07→21:07)
[2020-08-18] MEDS ORDERED: MoRPHine SULFATE PF 1 MG/ML 10 ML AMP/VIAL INT SPINAL ONE (03:07)
[2020-08-18] MEDS ORDERED: HYDROmorphone INJ 0.5 MG/0.5 ML SYR IV PRN (03:07)
[2020-08-18] MEDS ORDERED: NALOXONE HCL 0.08 MG in SYRINGE 1.8 ML IV PRN (03:07)
[2020-08-18] MEDS ORDERED: NALOXONE HCL 1 MG in SODIUM CHLORIDE 0.9% 1000ML 1,000 ML IV PRN (03:07)
[2020-08-18] MEDS ORDERED: ePHEDrine sulfate 50 MG/ML AMP IV PRN (03:07)
[2020-08-18] MEDS ORDERED: MoRPHine SULFATE 2 MG/ML CARP IV PRN (03:07)
[2020-08-18] MEDS ORDERED: KETOROLAC 30 MG/ML VIAL IV PRN ×2 (03:07→21:07)
[2020-08-18] MEDS ORDERED: NO NARCOTICS OR SEDATIVES SCH (03:15)
[2020-08-18] MEDS ORDERED: DC INTRASPINAL MORPHINE SCH (03:15)
[2020-08-18] MEDS ORDERED: SODIUM CHLORIDE 0.9% 1000ML 1,000 ML IV SCH (03:15)
[2020-08-18] MEDS ORDERED: OXYTOCIN 10 UNITS/ML VIAL ONE (03:27)
[2020-08-18] MEDS ORDERED: ePHEDrine sulfate 50 MG/ML SYR ONE (03:27)
[2020-08-18] MEDS ORDERED: PHENYLEPHRINE 100MCG/ML 5ML SYR ONE (03:27)
--- NOTE | 2020-08-18 03:30 | Post Operative Brief Note ---
Immediate Post Op Note v1 Date of Surgery August 18, 2020 Pre & Post Diagnosis Term elective repeat section Operation Date: 08/17/20 22:00 <No data on this case meets the specified criteria> I identified the patient and participated in the time-out.: Yes Procedure Repeat Section low segment transverse Operation Date: 08/17/20 22:00 <No data on this case meets the specified criteria> Surgeon Brijesh Lam MD [employer] Cindi Clemons RN Estimated Blood Loss 600 Findings Consistent with Post-Op Diagnosis live female Apgars 9/9 Fluids LR 1000 ml Specimens placenta cord blood Drains Erickson Catheter Anesthesia Type Spinal Complications none Disposition Accompanied Patient To Recovery: Yes Disposition: L&D Overlapping Procedure I was immediately available: during the entire case. Back up surgeon: was not required during procedure.
[2020-08-18] MEDS ORDERED: DIPHTHERIA/TETANUS/PERTUSSIS 0.5 ML SYR/VIAL IM ONE (03:45)
[2020-08-18] MEDS ORDERED: HYDROCORTISONE ACETATE 25 MG SUPP PR PRN (03:45)
[2020-08-18] MEDS ORDERED: SENNA 8.6 MG TAB PO PRN (03:45)
[2020-08-18] MEDS ORDERED: BENZOCAINE 20% AER SPR 82.5 GM CAN EXT PRN (03:45)
[2020-08-18] MEDS ORDERED: MAGNESIUM HYDROXIDE SUSP 30 ML UDC PO PRN (03:45)
[2020-08-18] MEDS ORDERED: LACTATED RINGER'S 1,000 ML IV SCH (03:45)
[2020-08-18] MEDS ORDERED: SUPERCREAM 0.870% 15 GM JAR EXT PRN (03:45)
--- NOTE | 2020-08-18 04:54 | Anesthesiology Progress Note ---
Date of Service August 18, 2020 Anesthesia Post Procedure Vital Signs Vital Signs: Temp Pulse Resp BP Pulse Ox 08/18/20 04:50 88 97 08/18/20 04:45 89 98 08/18/20 04:42 86 112/57 L 08/18/20 04:40 95 H 18 97 08/18/20 04:35 89 98 08/18/20 04:33 90 115/58 L 08/18/20 04:30 89 99 08/18/20 04:25 94 H 98 08/18/20 04:23 98 H 117/57 L 08/18/20 04:20 100 H 18 99 08/18/20 04:15 97 H 99 08/18/20 04:13 104 H 99/68 L 08/18/20 04:10 93 H 18 100 08/18/20 04:05 84 99 08/18/20 04:03 95 H 120/66 08/18/20 04:00 85 99 08/18/20 03:55 95 H 100 08/18/20 03:54 114 H 94 08/18/20 03:53 91 H 138/63 08/18/20 03:50 86 18 98 08/18/20 03:45 90 100 08/18/20 03:42 114 H 113/68 08/18/20 03:40 36.8 C 18 08/18/20 00:29 36.9 C 18 08/17/20 21:43 36.8 C 08/17/20 19:09 18 08/17/20 19:06 105 H 130/89 Transfer of Care Handoff Completed per policy Notes Mental Status: alert / awake / arousable and participated in evaluation Patient Amnestic to Procedure: Yes Nausea / Vomiting: adequately controlled Pain: adequately controlled Airway Patency, RR, SpO2: stable & adequate BP & HR: stable & adequate Hydration State: stable & adequate Anesthetic Complications: no major complications apparent
--- NOTE | 2020-08-18 05:54 | Operative Report (OR) ---
DATE OF OPERATION: 08/18/2020 PREOPERATIVE DIAGNOSIS: Term elective repeat section, in labor, 39 weeks and 3 days. POSTOPERATIVE DIAGNOSIS: Term elective repeat section, in labor, 39 weeks and 3 days. PROCEDURE: Repeat section, low segment, transverse. SURGEON: Brijesh Lam MD. ACCOUNTS RECEIVABLE ASSISTANT: Justina Daley RN. ANESTHESIA: Spinal. COMPLICATIONS: None. FINDINGS: Live female, Apgars 9 and 9, weight 9 pounds 1 ounce. TOTAL FLUIDS: 1000 mL ESTIMATED BLOOD LOSS: 600 mL CLINICAL HISTORY: The patient is a 40-year-old female, para 1-0-0-1 at 39 weeks and 3 days, admitted in labor with spontaneous rupture of membranes and the patient will be a repeat section scheduled for next week and will be done today. DESCRIPTION OF PROCEDURE: Under satisfactory spinal anesthesia, the patient was prepped and draped in usual sterile fashion. Timeout was called. Antibiotics were given. A low Pfannenstiel incision through a prior scar was then made, carrying this down into the abdominal layer, pickups with teeth and Metzenbaums were used to develop a bladder flap. A low segment transverse incision over the lower uterine segment was made. The incision was widened in the AP diameter. The amniotic sac was nicked and was found to be clear. The was then delivered with the aid of fundal pressure delivering a live female. The cord was doubly clamped and cut. Apgars 9 and 9, weight 9 pounds 1 ounce. Cord blood was obtained. Placenta delivered spontaneously and intact. Uterus was cleaned of all clots and debris. Uterus was then exteriorized. Ring forceps were then placed on both angles in the inferior margin. Another ring was used to dilate the cervix. The uterus was closed with 0 Vicryl suture in a continuous interlocking fashion followed by a second suture imbricating the first layer. No active bleeding was noted. The tubes, ovaries bilaterally were found to be within normal limits. The initial sponge, needle, and instrument count were found to be correct. The contents of the pelvic cavity were then irrigated to clear. The uterus was placed back into the normal anatomical position. The fascia was then reapproximated from both ends using 0 Vicryl suture in a continuous fashion. Subcuticular space was irrigated. Bleeders were cauterized. Subcuticular space was then closed with 3-0 plain suture. Skin was reapproximated with 4-0 Monocryl and Steri-Strips were then applied. Clear urine was noted from the Erickson. Estimated blood loss 600 mL. Final sponge, needle and instrument count were found to be correct. The patient was then placed on a stretcher and taken to recovery room in stable condition. I attest to the content of the Intraoperative Record and any orders documented therein. Any exceptions are noted below. LOVED
[2020-08-18] MEDS: OXYTOCIN 30 UNITS in LACTATED RINGER'S 1,000 ML IV SCH ×2 (06:32→14:50)
[2020-08-18] MEDS: SIMETHICONE 80 MG CHEW PO SCH ×4 (08:40→20:13)
[2020-08-18] MEDS: PRENATAL VITAMIN 1 TAB PO SCH (08:40)
[2020-08-18] MEDS: DOCUSATE SODIUM 100 MG CAP PO SCH ×2 (08:40→20:13)
[2020-08-18] MEDS: FERROUS SULFATE 325 MG TAB PO SCH (08:40)
[2020-08-18] MEDS ORDERED: POTASSIUM 20 MG PO SCH (09:00)
[2020-08-18] MEDS ORDERED: LACTATED RINGER'S 500 ML IV ONE (13:58)
--- NOTE | 2020-08-18 14:03 | Obstetrical Progress Note ---
Date of Service August 18, 2020 Assessment & Plan Admission and Anticipated Discharge Date Admission Date: August 17, 2020 Subjective Postop day # 0 Patient is seen and examined Feels well, no complaints Pain is under control with oral meds No CP/ SOB/ Dizziness/ N&V/ VB/ Leg pain Not OOB Tolerating clear diet Breast feeding Vital Signs Temp Pulse Pulse Resp BP BP Pulse Ox 08/18/20 12:13 18 96 08/18/20 11:00 36.8 C 86 18 116/73 95 08/18/20 10:23 16 96 08/18/20 09:22 16 94 08/18/20 08:00 16 99 08/18/20 07:10 36.5 C 96 H 16 113/75 96 08/18/20 07:03 18 96 08/18/20 06:30 88 108/58 L 96 08/18/20 06:25 88 97 08/18/20 06:20 86 97 08/18/20 06:15 82 97 08/18/20 06:10 89 108/57 L 97 08/18/20 06:05 85 97 08/18/20 06:00 77 96 08/18/20 05:55 90 98 08/18/20 05:50 98 H 115/65 97 08/18/20 05:45 81 96 08/18/20 05:40 86 18 97 08/18/20 05:35 89 97 08/18/20 05:30 98 H 117/79 96 08/18/20 05:25 98 H 97 08/18/20 05:20 97 H 97 08/18/20 05:15 85 96 08/18/20 05:10 94 H 18 118/58 L 97 08/18/20 05:05 96 H 98 08/18/20 05:00 90 98 08/18/20 04:55 95 H 97 08/18/20 04:50 36.9 C 88 18 97 08/18/20 04:45 89 98 08/18/20 04:42 86 112/57 L 08/18/20 04:40 95 H 18 97 08/18/20 04:35 89 98 08/18/20 04:33 90 115/58 L 08/18/20 04:30 89 99 08/18/20 04:25 94 H 98 08/18/20 04:23 98 H 117/57 L 08/18/20 04:20 100 H 18 99 08/18/20 04:15 97 H 99 08/18/20 04:13 104 H 99/68 L 08/18/20 04:10 93 H 18 100 08/18/20 04:05 84 99 08/18/20 04:03 95 H 120/66 08/18/20 04:00 85 99 08/18/20 03:55 95 H 100 08/18/20 03:54 114 H 94 08/18/20 03:53 91 H 138/63 08/18/20 03:50 86 18 98 08/18/20 03:45 90 100 08/18/20 03:42 114 H 113/68 08/18/20 03:40 36.8 C 18 UOP 450 in 7 hours, dark PE: General: Alert, orientedx3, NAD CVS: S1S2 RRR Lungs: CTAB Abd: soft, NT, ND, BS+, Dressing C/D/I, fundus firm below U No VB Ext: NT, no edema/ erythema AP: 40 yo female s/p RCsection , pod#0 VSS Afebrile doing well UOP adquate but concentrated Continue to routine postop care Encourage PO intake and ambulate Results [facility] Data ([facility]) Vital Signs (Past 12 Hours) Vital Signs Temp Pulse Pulse Resp BP BP Pulse Ox 08/18/20 12:13 18 96 08/18/20 11:00 36.8 C 86 18 116/73 95 08/18/20 10:23 16 96 08/18/20 09:22 16 94 08/18/20 08:00 16 99 08/18/20 07:10 36.5 C 96 H 16 113/75 96 08/18/20 07:03 18 96 08/18/20 06:30 88 108/58 L 96 08/18/20 06:25 88 97 08/18/20 06:20 86 97 08/18/20 06:15 82 97 08/18/20 06:10 89 108/57 L 97 08/18/20 06:05 85 97 08/18/20 06:00 77 96 08/18/20 05:55 90 98 08/18/20 05:50 98 H 115/65 97 08/18/20 05:45 81 96 08/18/20 05:40 86 18 97 08/18/20 05:35 89 97 08/18/20 05:30 98 H 117/79 96 08/18/20 05:25 98 H 97 08/18/20 05:20 97 H 97 08/18/20 05:15 85 96 08/18/20 05:10 94 H 18 118/58 L 97 08/18/20 05:05 96 H 98 08/18/20 05:00 90 98 08/18/20 04:55 95 H 97 08/18/20 04:50 36.9 C 88 18 97 08/18/20 04:45 89 98 08/18/20 04:42 86 112/57 L 08/18/20 04:40 95 H 18 97 08/18/20 04:35 89 98 08/18/20 04:33 90 115/58 L 08/18/20 04:30 89 99 08/18/20 04:25 94 H 98 08/18/20 04:23 98 H 117/57 L 08/18/20 04:20 100 H 18 99 08/18/20 04:15 97 H 99 08/18/20 04:13 104 H 99/68 L 08/18/20 04:10 93 H 18 100 08/18/20 04:05 84 99 08/18/20 04:03 95 H 120/66 08/18/20 04:00 85 99 08/18/20 03:55 95 H 100 08/18/20 03:54 114 H 94 08/18/20 03:53 91 H 138/63 08/18/20 03:50 86 18 98 08/18/20 03:45 90 100 08/18/20 03:42 114 H 113/68 08/18/20 03:40 36.8 C 18
[2020-08-18] MEDS: SERTRALINE HCL 50 MG TABLET PO SCH (20:13)
[2020-08-18] MEDS: LORATADINE 10 MG TAB PO SCH (20:13)
[2020-08-18] MEDS ORDERED: NON-FORMULARY MEDICATION (Pnv Cmb#95-Ferrous Fumarate-Fa [Prenatal] 28 mg iron- 800 mcg Ta PO SCH (21:00)
[2020-08-18] MEDS ORDERED: diphenhydrAMINE Capsule 25 MG CAP PO PRN (21:07)
[2020-08-18] MEDS ORDERED: PROMETHAZINE HCL 25 MG in SODIUM CHLORIDE 0.9% 50 ML IV PRN (21:07)
[2020-08-18] MEDS ORDERED: MEPERIDINE HCL 50 MG/ML CARP IV PRN (21:07)
[2020-08-19] MEDS: IBUPROFEN 600 MG TAB PO PRN ×4 (04:22→22:14)
[2020-08-19 06:35] LABS: Basophils # (auto) 0.02 K/uL (0-0.2); Basophils % (auto) 0.2 %; Eosinophils # (auto) 0.13 K/uL (0-0.5); Eosinophils % (auto) 1.1 %; Hematocrit (blood only) 30.7 % (37-47); Hemoglobin 10.3 g/dL (12.0-16.0); Immature Granulocytes # (auto) 0.05 K/uL (0.00-0.02); Immature Granulocytes % (auto) 0.4 %; Lymphocytes # (auto) 1.97 K/uL (1.2-3.4); Lymphocytes % (auto) 16.3 %; Mean Corpuscular Hemoglobin 28.2 pg (25-34); Mean Corpuscular Hgb Conc 33.6 g/dL (32-36); Mean Corpuscular Volume 84.1 fL (80-100); Mean Platelet Volume 9.7 fL (7.4-10.4); Monocytes # (auto) 0.91 K/uL (0.11-0.59); Monocytes % (auto) 7.5 %; Neutrophils # (auto) 9.02 K/uL (1.4-6.5); Neutrophils % (auto) 74.5 %; Platelet Count 138 K/uL (130-400); RDW Coefficient of Variation 14.4 % (11.5-14.5); RDW Standard Deviation 44.1 fL (36.4-46.3); Red Blood Count 3.65 M/uL (4.2-5.4)
--- NOTE | 2020-08-19 07:34 | Obstetrical Progress Note ---
Date of Service August 19, 2020 Assessment & Plan Admission and Anticipated Discharge Date Admission Date: August 17, 2020 Subjective Patient is seen and examined. She feels well, no complaints. Pain is under control with oral meds. Ambulating without dizziness Voiding without difficulty Tolerating regular diet with out N&V Flatus + BM NEG Bleeding is minimal No fever/ chills/ CP/ SOB/ N&V/ Leg pain Breast feeding without problems Vital Signs Temp Pulse Pulse Resp BP Pulse Ox 08/19/20 00:00 36.9 C 94 H 18 105/73 08/18/20 20:15 16 95 08/18/20 19:15 18 96 08/18/20 19:10 36.7 C 98 H 18 121/77 94 08/18/20 18:15 18 96 08/18/20 17:15 16 94 08/18/20 16:15 16 95 08/18/20 15:15 16 96 08/18/20 14:55 36.9 C 90 18 112/74 96 08/18/20 14:11 16 96 08/18/20 13:00 16 96 08/18/20 12:13 18 96 08/18/20 11:00 36.8 C 86 18 116/73 95 08/18/20 10:23 16 96 08/18/20 09:22 16 94 08/18/20 08:00 16 99 Intake and Output 08/18/20 08/19/20 08/19/20 22:59 06:59 14:59 Intake Total 905 / 1908 Output Total 1200 / 1650 Balance -295 / 258 Intake: Oral 905 / 905 Output: Urine Amount (Catheter) 1200 / 1650 Erickson/Indwelling 1200 / 1650 Lab Results 08/17/20 08/17/20 08/17/20 Range/Units 20:09 20:09 Unknown WBC 12.04 H (4.8-10.8) K/uL RBC 4.85 (4.2-5.4) M/uL Hgb 14.0 (12.0-16.0) g/dL Hct 39.7 (37-47) % MCV 81.9 (80-100) fL MCH 28.9 (25-34) pg MCHC 35.3 (32-36) g/dL RDW Std Deviation 42.4 (36.4-46.3) fL RDW Coeff of Brandi 14.3 (11.5-14.5) % Plt Count 196 (130-400) K/uL MPV 10.0 (7.4-10.4) fL Immature Gran % (Auto) 0.4 % Neut % (Auto) 69.3 % Lymph % (Auto) 21.8 % [place] % (Auto) 7.7 % Eos % (Auto) 0.7 % Baso % (Auto) 0.1 % Neut # (Auto) 8.34 H (1.4-6.5) K/uL Lymph # (Auto) 2.63 (1.2-3.4) K/uL [place] # (Auto) 0.93 H (0.11-0.59) K/uL Eos # (Auto) 0.08 (0-0.5) K/uL Baso # (Auto) 0.01 (0-0.2) K/uL Immature Gran # (Auto) 0.05 H (0.00-0.02) K/uL Amniotic Protein COVID-19 Eval Order Covid19 [facility] SARS-CoV-2, RNA, NAAT (NEGATIVE) Blood Type O Positive Antibody Screen POSITIVE A Antibody Identification Anti-E Antibody ID Comment Antigen Identification E Antigen - NEGATIVE 08/17/20 08/17/20 08/19/20 Range/Units Unknown Unknown 05:49 WBC 12.10 H (4.8-10.8) K/uL RBC 3.65 L (4.2-5.4) M/uL Hgb 10.3 L D (12.0-16.0) g/dL Hct 30.7 L (37-47) % MCV 84.1 (80-100) fL MCH 28.2 (25-34) pg MCHC 33.6 (32-36) g/dL RDW Std Deviation 44.1 (36.4-46.3) fL RDW Coeff of Brandi 14.4 (11.5-14.5) % Plt Count 138 (130-400) K/uL MPV 9.7 (7.4-10.4) fL Immature Gran % (Auto) 0.4 % Neut % (Auto) 74.5 % Lymph % (Auto) 16.3 % Bl[place] % (Auto) 7.5 % Eos % (Auto) 1.1 % Baso % (Auto) 0.2 % Neut # (Auto) 9.02 H (1.4-6.5) K/uL Lymph # (Auto) 1.97 (1.2-3.4) K/uL Blanco # (Auto) 0.91 H (0.11-0.59) K/uL Eos # (Auto) 0.13 (0-0.5) K/uL Baso # (Auto) 0.02 (0-0.2) K/uL Immature Gran # (Auto) 0.05 H (0.00-0.02) K/uL Amniotic Protein POS COVID-19 Eval Order SARS-CoV-2, RNA, NAAT NEGATIVE (NEGATIVE) Blood Type Antibody Screen Antibody Identification Antibody ID Comment Antigen Identification PE: General: Alert, orientedx3, NAD CVS: S1S2 RRR Lungs; CTAB Abd: soft, NT, ND, BS+, fundus firm, below Umbilicus Incision: Clean, dry, intact Perineum intact, Lochia rubra minimal Ext; NT, no edema AP: 40 yo s/p C Section, pod# 1 VSS Afebrile doing well Continue routine postop care Encourage ambulation, PO intake All questions were answered D/C home tomorrow Results & Data ([facility]) Vital Signs (Past 12 Hours) Vital Signs Temp Pulse Resp BP Pulse Ox 08/19/20 00:00 36.9 C 94 H 18 105/73 08/18/20 20:15 16 95
[2020-08-19] MEDS: DOCUSATE SODIUM 100 MG CAP PO SCH ×2 (08:42→22:15)
[2020-08-19] MEDS: SIMETHICONE 80 MG CHEW PO SCH ×4 (08:42→22:15)
[2020-08-19] MEDS: FERROUS SULFATE 325 MG TAB PO SCH (08:42)
[2020-08-19] MEDS: PRENATAL VITAMIN 1 TAB PO SCH (08:42)
[2020-08-19] MEDS: oxyCODONE/ACETAMINOPHEN 5mg/325mg TAB PO PRN ×2 (18:27→22:14)
[2020-08-19] MEDS ORDERED: bisacodyL 5 MG TABEC PO SCH (20:00)
[2020-08-19] MEDS: LORATADINE 10 MG TAB PO SCH (22:15)
[2020-08-19] MEDS: SERTRALINE HCL 50 MG TABLET PO SCH (22:15)
[2020-08-20] MEDS ORDERED: bisacodyL 10 MG SUPP PR PRN (03:32)
[2020-08-20] MEDS: IBUPROFEN 600 MG TAB PO PRN (03:35)
[2020-08-20 06:41] LABS: Hematocrit (blood only) 29.8 % (37-47); Hemoglobin 9.9 g/dL (12.0-16.0)
--- NOTE | 2020-08-20 08:44 | Surgery Progress Note ---
Date of Service August 20, 2020 Assessment & Plan Admission and Anticipated Discharge Date Admission Date: August 17, 2020 Subjective POD#2 doing well out of bed tolerating diet passing gas minimal pain Physical Exam Constitutional: WD/WN, vitals as above well developed and comfortable incision c/d/i abdomen soft and non-tender fundus firm no edema neg Vandana's for d/c Results & Data ([facility]) Vital Signs (Past 12 Hours) Vital Signs Temp Pulse Resp BP Pulse Ox 08/20/20 07:47 36.8 C 89 18 123/83 99 08/19/20 23:25 36.5 C 97 H 16 130/79 99 08/19/20 21:10 36.9 C 96 H 18 131/83 99 Laboratory Results 08/17/20 08/17/20 08/17/20 20:09 20:09 Unknown WBC 12.04 H RBC 4.85 Hgb 14.0 Hct 39.7 MCV 81.9 MCH 28.9 MCHC 35.3 RDW Std Deviation 42.4 RDW Coeff of Brandi 14.3 Plt Count 196 MPV 10.0 Immature Gran % (Auto) 0.4 Neut % (Auto) 69.3 Lymph % (Auto) 21.8 [place] % (Auto) 7.7 Eos % (Auto) 0.7 Baso % (Auto) 0.1 Neut # (Auto) 8.34 H Lymph # (Auto) 2.63 [place] # (Auto) 0.93 H Eos # (Auto) 0.08 Baso # (Auto) 0.01 Immature Gran # (Auto) 0.05 H Amniotic Protein COVID-19 Eval Order Covid19 [facility] SARS-CoV-2, RNA, NAAT Blood Type O Positive Antibody Screen POSITIVE A Antibody Identification Anti-E Antibody ID Comment Antigen Identification E Antigen - NEGATIVE 08/17/20 08/17/20 08/19/20 Unknown Unknown 05:49 WBC 12.10 H RBC 3.65 L Hgb 10.3 L D Hct 30.7 L MCV 84.1 MCH 28.2 MCHC 33.6 RDW Std Deviation 44.1 RDW Coeff of Brandi 14.4 Plt Count 138 MPV 9.7 Immature Gran % (Auto) 0.4 Neut % (Auto) 74.5 Lymph % (Auto) 16.3 [place] % (Auto) 7.5 Eos % (Auto) 1.1 Baso % (Auto) 0.2 Neut # (Auto) 9.02 H Lymph # (Auto) 1.97 [place] # (Auto) 0.91 H Eos # (Auto) 0.13 Baso # (Auto) 0.02 Immature Gran # (Auto) 0.05 H Amniotic Protein POS COVID-19 Eval Order SARS-CoV-2, RNA, NAAT NEGATIVE Blood Type Antibody Screen Antibody Identification Antibody ID Comment Antigen Identification 08/20/20 06:00 WBC RBC Hgb 9.9 L Hct 29.8 L MCV MCH MCHC RDW Std Deviation RDW Coeff of Brandi Plt Count MPV Immature Gran % (Auto) Neut % (Auto) Lymph % (Auto) [place] % (Auto) Eos % (Auto) Baso % (Auto) Neut # (Auto) Lymph # (Auto) [place] # (Auto) Eos # (Auto) Baso # (Auto) Immature Gran # (Auto) Amniotic Protein COVID-19 Eval Order SARS-CoV-2, RNA, NAAT Blood Type Antibody Screen Antibody Identification Antibody ID Comment Antigen Identification
[2020-08-20] MEDS: DOCUSATE SODIUM 100 MG CAP PO SCH (09:00)
[2020-08-20] MEDS: PRENATAL VITAMIN 1 TAB PO SCH (09:00)
[2020-08-20] MEDS: SIMETHICONE 80 MG CHEW PO SCH (09:00)
[2020-08-20] MEDS: FERROUS SULFATE 325 MG TAB PO SCH (09:00)
--- NOTE | 2020-08-25 17:44 | Discharge Summary (DS) ---
REASON FOR ADMISSION AND HOSPITAL COURSE: The patient is a 40-year-old female, para 1-0-0-1, at 39 weeks and 3 days, admitted in labor with spontaneous rupture of membranes. The patient was scheduled for a repeat section. She was then subsequently set up for a . was done under spinal anesthesia without any complications, delivering a live female, Apgars were 9 and 9. weight was 9 pounds 1 ounce. The patient subsequently had a normal hospital course and was discharged in stable condition. Regular diet on discharge. Percocet and Motrin for pain. Followup in the clinic in 1 week for incision check.
== END 2020-08-20 11:40 | disposition home or self-care (01) | DRG 788 ==
LOC: OPB 19:01 → 4S1 19:02 → 4S2 08-18 06:43